=== PATIENT | female | born 1955 | race African-American/Black ===

== ENCOUNTER 2023-11-23 19:05 | Emergency (ER) | payer MEDICARE, OTHER ==
[2023-11-23] MEDS ORDERED: Acetaminophen 500 MG TAB ONE (19:31)
[2023-11-23] MEDS ORDERED: Ipratropium/Albuterol 3 ML NEB ONE (19:31)
[2023-11-23 20:05] LABS: Bilirubin, Total 0.4 mg/dL (0.2-1.2); Calcium 7.9 mg/dL (7.8-10.44); Chloride 106 mmol/L (98-107); Potassium 3.6 mmol/L (3.5-5.1); Sodium 135 mmol/L (136-145)
[2023-11-23 20:11] LABS: #Basophils 0.1 thou/uL (0.0-0.2); #Lymphocytes 0.9 thou/uL (1.20-3.40); #Monocytes 0.5 thou/uL (0.11-0.59); #Neutrophils 4.3 thou/uL (1.40-6.50); %Basophils 1.1 % (0.0-1.0); %Eosinophils 0.1 % (0.0-10.0); %Lymphocytes 16.3 % (21.0-51.0); %Monocytes 8.1 % (0.0-10.0); %Neutrophils 74.4 % (42.0-75.0); Hematocrit 45.2 % (36.0-47.0); Mean Corpuscular HGB CONC 33.2 g/dL (32.0-36.0); Mean Corpuscular Hemoglobin 29.4 pg (27.0-31.0); Mean Corpuscular Volume 88.5 fl (78.0-98.0); Platelet Count 183 10x3/uL (130-400); Red Blood Cell (RBC) Count 5.11 mill/uL (4.20-5.40); White Blood Cell (WBC) Count 5.7 10x3/uL (4.8-10.8)
[2023-11-23 20:13] LABS: Troponin I Less than 0.010 ng/mL (< 0.028)
[2023-11-23 20:18] LABS: ALT (SGPT) 17 U/L (8-55); AST (SGOT) 25 U/L (5-34); Albumin 3.9 g/dL (3.4-4.8); Alkaline Phosphatase 68 U/L (40-110); BUN (Urea Nitrogen) 13 mg/dL (9.8-20.1); Calc. Creatinine Clearance 0 mL/min (70-130); Carbon Dioxide 17 mmol/L (23-31); Estimated GFR 54; Globulin 2.8 g/dL (2.4-3.5); Glucose 136 mg/dL (80-115); Protein, Total 6.7 g/dL (5.8-8.1)
[2023-11-23 20:24] LABS: Anion Gap 16 mmol/L (10-20)
[2023-11-23] MEDS ORDERED: Ketorolac Tromethamine 30 MG (1 mL) VIAL ONE (20:39)
== END 2023-11-23 21:33 | disposition home or self-care (01) ==
LOC: BURERS 19:05
DX: J10.1 Influenza due to other identified influenza virus with other respiratory manifestations (principal); J44.9 Chronic obstructive pulmonary disease, unspecified; F17.210 Nicotine dependence, cigarettes, uncomplicated
CPT/HCPCS: 71045; 80053; 83605; 83880; 84484; 85025; 87804; 93005; 96374; J1885; J7620

== ENCOUNTER 2023-11-26 10:44 | Emergency (ER) | payer MEDICARE ==
[~2023-11-26 10:44] MED LIST: Iopamidol 370 76% 100 ML VIAL ONE
[2023-11-26 11:18] LABS: Hemoglobin 14.5 g/dL (12.0-16.0); Mean Corpuscular HGB CONC 32.9 g/dL (32.0-36.0); Mean Corpuscular Hemoglobin 29.8 pg (27.0-31.0); Mean Corpuscular Volume 90.5 fl (78.0-98.0); Mean Platelet Volume 8.7 fL (7.4-10.4); Platelet Count 200 10x3/uL (130-400); RBC Distribution Width 13.1 % (11.5-14.5); Red Blood Cell (RBC) Count 4.86 mill/uL (4.20-5.40); White Blood Cell (WBC) Count 6.3 10x3/uL (4.8-10.8)
[2023-11-26 11:33] LABS: ALT (SGPT) 21 U/L (8-55); AST (SGOT) 29 U/L (5-34); Albumin 3.7 g/dL (3.4-4.8); Alkaline Phosphatase 64 U/L (40-110); Anion Gap 14 mmol/L (10-20); BUN (Urea Nitrogen) 9 mg/dL (9.8-20.1); Bilirubin, Total 0.7 mg/dL (0.2-1.2); Calc. Creatinine Clearance 0 mL/min (70-130); Calcium 8.6 mg/dL (7.8-10.44); Carbon Dioxide 23 mmol/L (23-31); Chloride 106 mmol/L (98-107); Estimated GFR 69; Globulin 3.3 g/dL (2.4-3.5); Glucose 106 mg/dL (80-115); Potassium 3.2 mmol/L (3.5-5.1); Sodium 140 mmol/L (136-145)
[2023-11-26 11:35] LABS: Troponin I Less than 0.010 ng/mL (< 0.028)
[2023-11-26] MEDS ORDERED: Ipratropium/Albuterol 3 ML NEB ONE (11:35)
[2023-11-26 11:44] LABS: Band 5 % (5-11); Lymphocytes 29 % (21-51); MDiff Complete? YES; Monocytes 8 % (0-10); Neutrophil 58 % (42-75); Platelet Adequacy Comment Appears Adequate
[2023-11-26] MEDS ORDERED: cefTRIAXone (ROCEPHIN) 1 GM VIAL ONE (13:09)
[2023-11-26] MEDS ORDERED: Sodium Chloride 0.9% 100 ML ONE (13:10)
[2023-11-26] MEDS ORDERED: Enoxaparin 100 MG (1 mL) SYRINGE ONE (13:28)
[2023-11-26] MEDS ORDERED: Azithromycin 500 MG VIAL ONE (13:56)
[2023-11-26 14:54] LABS: Bilirubin Negative (Negative); Blood, Urine Moderate (Negative); Clarity Clear (Clear); Glucose, Urine (Dipstick) Negative (Negative); Ketone, Urine Negative (Negative); Leukocyte Negative (Negative); Nitrite Negative (Negative); Protein, Urine (Dipstick) 30 mg/dL (Neg-Trace)
[2023-11-26 15:06] LABS: Bacteria/HPF 1+ HPF (None Seen); CAUTI Indications for Culture Pelvic or flank pain; WBC/HPF None Seen HPF (0-3)
[2023-11-26 15:07] LABS: Urine Culture Reflex No No
== END 2023-11-26 17:40 | disposition short-term general hospital (02) ==
LOC: BURERS 10:44
DX: I26.99 Other pulmonary embolism without acute cor pulmonale (principal); E78.00 Pure hypercholesterolemia, unspecified; J44.9 Chronic obstructive pulmonary disease, unspecified; F17.210 Nicotine dependence, cigarettes, uncomplicated; Z79.899 Other long term (current) drug therapy
CPT/HCPCS: 36415; 71045; 71275; 80053; 81001; 83880; 84484; 85025; 87040; 87086; 93005; 94760; 96365; 96367; 96372; J0456; J0696; J1650; J3490; J7620; Q9967